=== PATIENT | male | born 1995 | race Caucasian/White ===

== ENCOUNTER 2019-06-08 05:45 | Day surgery (SDC) | payer OTHER ==
[~2019-06-08] VITALS: Ht 177.8 cm; Wt 85.9 kg
[2019-06-08] VITALS (19 sets, daily range): BP systolic 140–167; BP diastolic 68–96; PULSE 72–118; RESP 10–20; Ht 177.8 cm; Wt 85.9 kg
[2019-06-08] MEDS ORDERED: EPINEPHrine 1 MG/ML 30 ML INJ ONE ×2 (06:50→11:07)
[2019-06-08] MEDS ORDERED: LACTATED RINGER'S 1,000 ML IV SCH (07:00)
[2019-06-08] MEDS ORDERED: morphine SULFATE/PF (10 MG/10 ML) INJ ONE (07:14)
[2019-06-08] MEDS ORDERED: HYDROmorphONE 1 MG/5 ML IV SYRINGE IV PRN ×3 (07:30)
[2019-06-08] MEDS ORDERED: KETOROLAC 30 MG INJ IV PRN (07:30)
[2019-06-08] MEDS ORDERED: DIPHENHYDRAMINE 50 MG INJ IV PRN (07:30)
[2019-06-08] MEDS ORDERED: OXYCODONE/ACETAMINOPHEN (5/325) TAB PO PRN ×2 (07:30)
[2019-06-08] MEDS ORDERED: ONDANSETRON 4 MG INJ IV PRN (07:30)
[2019-06-08] MEDS ORDERED: MEPERIDINE 25 MG INJ IV PRN (07:30)
[2019-06-08] MEDS ORDERED: FENTAnyl 50 MCG/ML VIAL IV PRN ×3 (07:30)
[2019-06-08] MEDS ORDERED: MIDAZOLAM 1 MG/ML 2 ML INJ ONE (07:36)
[2019-06-08] MEDS ORDERED: PROPOFOL 20 ML ONE (07:36)
[2019-06-08] MEDS ORDERED: CEFAZOLIN 1 GM INJ ONE (07:36)
[2019-06-08] MEDS ORDERED: ROPIVACAINE 0.2% 20 ML VIAL ONE (07:36)
[2019-06-08] MEDS ORDERED: METOCLOPRAMIDE 10 MG INJ ONE (07:36)
[2019-06-08] MEDS ORDERED: KETOROLAC 30 MG INJ ONE (07:36)
[2019-06-08] MEDS ORDERED: ONDANSETRON 4 MG INJ ONE (07:36)
[2019-06-08] MEDS ORDERED: FENTAnyl 50 MCG/ML VIAL ONE (07:40)
[2019-06-08] MEDS ORDERED: HYDROmorphONE 2 MG/ML SYG ONE (08:01)
[2019-06-08] MEDS ORDERED: POLYMYXIN/BACITRACIN 1L IRRIG IRR ONE (09:00)
[2019-06-08] MEDS ORDERED: HYDROCODONE/APAP (5/325) TAB PO PRN (12:00)
[2019-06-08] MEDS ORDERED: LABETALOL HCL 20MG INJ IV ONE (13:00)
== END 2019-06-08 15:25 | disposition home or self-care (01) ==
LOC: SDS 05:45
PROVIDERS: ATTEND Internal Medicine Endocrinology, Diabetes & Metabolism
DX: S83.511D Sprain of anterior cruciate ligament of right knee, subsequent encounter (principal); S83.231D Complex tear of medial meniscus, current injury, right knee, subsequent encounter; S83.211D Bucket-handle tear of medial meniscus, current injury, right knee, subsequent encounter; X58.XXXD Exposure to other specified factors, subsequent encounter
CPT/HCPCS: 29881; 29888; C1713; J0171; J1170; J1885; J2250; J2274; J2405; J2765; J2795; J3010; Z7512; Z7610; J0690